=== PATIENT | male | born 1975 ===

== ENCOUNTER 2022-06-27 23:26 | Outpatient (REF) | payer MEDICAID, SELFPAY ==
[2022-06-27 22:11] LABS: ALT 86 U/L (16-63); AST 33 U/L (15-37); Alkaline Phosphatase 110 U/L (46-116); Anion Gap 4.1 mmol/L (3-11); BUN 19 mg/dL (7-18); Bilirubin, Total 0.3 mg/dL (0.2-1.0); CO2 30.9 mmol/L (21.0-32.0); CREATININE 1.1 mg/dL (0.70-1.30); Calcium 9.3 mg/dL (8.5-10.1); Chloride 103 mmol/L (98-107); Cholesterol 234 mg/dL (<200); Estimated GFR 83.84 (mL/min/1.73m2); Glucose 101 mg/dL (74-106); HDL Cholesterol 31 mg/dL (40-60); Potassium 4.4 mmol/L (3.5-5.1); Sodium 138 mmol/L (136-145); Total Protein 7.5 g/dL (6.4-8.2); Triglyceride 414 mg/dL (<150)
[2022-06-27 22:49] LABS: LDL CHOLESTEROL 132 mg/dL (<100)
[2022-06-29 11:35] LABS: HIV-1/2 Ag & Ab Screen Negative (Negative)
[2022-06-29 12:09] LABS: Hepatitis C Ab w Rflx HCV PCR Negative (Negative)
[2022-06-29 15:23] LABS: Chlamydia Result Negative (Negative); GC Result Negative (Negative)
== END 2022-06-27 23:27 | disposition home or self-care (01) ==
LOC: NCHCN 23:26
PROVIDERS: Visit Provider Registered Nurse
DX: E66.8 Other obesity (principal); Z13.220 Encounter for screening for lipoid disorders; Z11.3 Encounter for screening for infections with a predominantly sexual mode of transmission; Z11.4 Encounter for screening for human immunodeficiency virus [HIV]; Z11.59 Encounter for screening for other viral diseases
CPT/HCPCS: 80053; 80061; 83721; 86803; 87389; 87491; 87591

== ENCOUNTER 2022-11-28 11:11 | Outpatient (REF) | payer MEDICAID, SELFPAY ==
[2022-11-28 15:17] LABS: ALT 49 U/L (16-63); AST 30 U/L (15-37); Albumin 3.8 g/dL (3.4-5.0); Alkaline Phosphatase 103 U/L (46-116); Bilirubin, Direct 0.1 mg/dL (0.0-0.2); Bilirubin, Total 0.4 mg/dL (0.2-1.0); Total Protein 7.5 g/dL (6.4-8.2)
== END 2022-11-28 11:12 | disposition home or self-care (01) ==
LOC: NCHCN 11:11
PROVIDERS: Visit Provider Registered Nurse
DX: R74.8 Abnormal levels of other serum enzymes (principal)
CPT/HCPCS: 80076

== ENCOUNTER 2023-06-27 09:13 | Outpatient (REF) | payer MEDICAID, SELFPAY ==
[2023-06-27 21:39] LABS: HCT 44.6 % (40.0-50.0); HGB 15.3 g/dL (13.5-17.5); MCH 29.9 pg (27.0-33.0); MCHC 34.3 % (32.0-36.0); MCV 87 fL (80-95); MPV 9.8 fL (8.0-11.0); Platelet Count 290 10^3/uL (130-400); RBC 5.12 10^6/uL (4.36-5.78); RDW 11.9 % (11.8-14.1); WBC 5.78 10^3/uL (4.4-10.8)
[2023-06-27 22:42] LABS: ALT 56 U/L (16-63); AST 25 U/L (15-37); Albumin 4.1 g/dL (3.4-5.0); Alkaline Phosphatase 113 U/L (46-116); Anion Gap 9.9 mmol/L (3-11); BUN 18 mg/dL (7-18); Bilirubin, Total 0.3 mg/dL (0.2-1.0); CO2 26.1 mmol/L (21.0-32.0); Chloride 104 mmol/L (98-107); Glucose 115 mg/dL (74-106); Potassium 4.4 mmol/L (3.5-5.1); Sodium 140 mmol/L (136-145); TSH 1.21 uIU/mL (0.36-3.74); Total Protein 7.9 g/dL (6.4-8.2)
[2023-06-27 22:46] LABS: Hemoglobin A1C 5.6 % (<5.7)
[2023-06-27 22:47] LABS: CREATININE 1.1 mg/dL (0.70-1.30); Estimated GFR 83.32 (mL/min/1.73m2)
[2023-06-29 13:53] LABS: Chlamydia Result Negative (Negative); GC Result Negative (Negative)
[2023-06-30 12:14] LABS: HIV-1/2 Ag & Ab Screen Negative (Negative)
[2023-07-01 08:56] LABS: Syphilis Serology (RPR) Negative (Negative)
== END 2023-06-27 09:14 ==
LOC: NCHCN 09:13
PROVIDERS: Visit Provider Family Medicine
DX: E66.9 Obesity, unspecified (principal); R73.9 Hyperglycemia, unspecified; Z11.3 Encounter for screening for infections with a predominantly sexual mode of transmission
CPT/HCPCS: 80053; 85027; 87389; 87491; 87591; 83036; 84439; 84443; 86592